=== PATIENT | male | born 1960 | race Two or more races ===

== ENCOUNTER 2020-06-04 18:42 | Emergency (ER) | payer SELFPAY ==
[2020-06-04] MEDS ORDERED: ZINC SULFATE 220mg CAP or TAB PO ONE (19:00)
[2020-06-04] MEDS ORDERED: AZITHROMYCIN 500MG/ 250ML 250 ML IV ONE (19:00)
[2020-06-04] MEDS ORDERED: ASCORBIC ACID 500 MG TAB PO ONE (19:00)
[2020-06-04] MEDS ORDERED: DexAMETHasone SOD PHOS 10MG/1ML VIAL INJ IV ONE (19:00)
== END 2020-06-04 20:01 | disposition left against medical advice (07) ==
LOC: ER 18:44
DX: R06.02 Shortness of breath (principal); R05 Cough; R07.81 Pleurodynia; R53.83 Other fatigue; Z20.828 Contact with and (suspected) exposure to other viral communicable diseases